=== PATIENT | male | born 1955 | race Caucasian/White ===

== ENCOUNTER 2016-10-31 04:41 | Emergency (ER) | payer BC ==
[~2016-10-31] VITALS: Ht 172.7 cm; Wt 96.0 kg
[~2016-10-31 04:41] MED LIST: MELO7.5
[2016-10-31 04:48] VITALS: BP 145/98; PULSE 63; RESP 14; TEMP 98.3; O2SAT 97
[2016-10-31] MEDS ORDERED: DEXAMETHASONE SOD PHOS 20 MG/5 ML VIAL IM ONE (05:15)
[2016-10-31] MEDS ORDERED: ORPHENADRINE INJ 60 MG/2 ML AMP IM ONE (05:15)
[2016-10-31] MEDS ORDERED: MEDR4PAK PO (05:20)
[2016-10-31] MEDS ORDERED: ROBA750T PO (05:20)
[2016-10-31] MEDS ORDERED: TRAM50TA PO (05:20)
--- NOTE | 2016-10-31 05:21 | PD ---
HPI Chief Complaint: Musculoskeletal Complaint Time Seen by Provider: 05:05 Travel History International Travel<30 days: No Contact w/Intl Traveler<30days: No Traveled to known affect area: No History of Present Illness HPI 61-year-old male presents to the emergency department for complaint of severe pain to the right proximal lower extremity extending from the right buttock to the medial thigh area just proximal to the knee. Patient states symptoms began after patient used a medicine ball to do repetitive leg lifts on Saturday and was able to ambulate with ease as well as go surfing. Patient noticed symptoms began to worsen on Saturday and then by this morning was such that he has marked pain with attempted ambulation. Patient did take ibuprofen twice with last dose at 11 PM 800 mg. Patient denies any numbness tingling or weakness of the right lower extremity. Patient denies any saddle anesthesia. Patient denies any bladder or bowel dysfunction. Patient does note some low back pain in the right SI joint distribution. No prior history of lumbar disc disease or HNP. Patient states that he does not have pain in the hip joint itself is able to lift his leg across his leg for abduction and adduction internally and externally rotate his leg at the hip and has normal knee and ankle range of motion. Patient has not had any paresthesias to the right lower extremity has not noticed any discoloration of the right lower extremity no erythema no increased warmth no pallor or coolness. Patient states pain is only with attempted ambulation. Patient has no pain with standing sitting lying are again hip flexion extension or internal/external rotation abduction or abduction. No prior history of low back injury or pelvic pain or hip pain. Patient has cold-induced asthma but denies any other chronic medical conditions or surgeries. Patient takes no medications on a routine basis. Patient has used his 's cane to assist with ambulation. PFSH Past Medical History Narrative Medical Cold-induced asthma, tonsillectomy, occasional alcohol use; nursing notes reviewed Tetanus Vaccination: < 5 Years Influenza Vaccination: No Past Surgical History Tonsillectomy: Yes Social History Alcohol Use: Yes (occ) Tobacco Use: No Substance Use: No Allergies-Medications (Allergen,Severity, Reaction): Coded Allergies: Penicillin (Verified Allergy, Unknown, 10/31/16) Reported Meds & Prescriptions Reported Meds & Active Scripts Active Tramadol (Tramadol HCl) 50 Mg Tab 50 Mg PO Q6H PRN Robaxin (Methocarbamol) 750 Mg Tab 750 Mg PO Q6HR Medrol Dosepak (Methylprednisolone) 4 Mg Dspk 4 Mg PO DIRECTED Per Pharmacist direction Review of Systems Except as stated in HPI: all other systems reviewed are Neg General / Constitutional: No: Fever, Chills HENT: No: Congestion Cardiovascular: No: Chest Pain or Discomfort Respiratory: No: Shortness of Breath Gastrointestinal: No: Nausea, Vomiting, Abdominal Pain Genitourinary: No: Dysuria, Hesitancy, Dribbling, Incontinence, Pelvic Pain, Flank Pain Musculoskeletal: Positive: Myalgias, Arthralgias, Pain (with ambulation), No: Limited ROM, Weakness, Cramping, Edema Skin: No Rash Neurologic: No: Weakness, Focal Abnormalities, Coordination Problem, Paresthesia, Incontinence, Sensory Disturbance Psychiatric: No: Anxiety Hematologic/Lymphatic: No: Lymph Node Enlargement Physical Exam Narrative GENERAL: Well-developed well-nourished male in no acute distress no respiratory distress SKIN: Warm and dry. HEAD: Normocephalic. EYES: No scleral icterus. No injection or drainage. NECK: Supple, trachea midline. No JVD or lymphadenopathy. CARDIOVASCULAR: Regular rate and rhythm without murmurs, gallops, or rubs. RESPIRATORY: Breath sounds equal bilaterally. No accessory muscle use. GASTROINTESTINAL: Abdomen soft, non-tender, nondistended. MUSCULOSKELETAL: No cyanosis, or edema. Patient is able to demonstrate bilateral hip internal/external rotation and flexion extension and abduction and abduction as well as normal bilateral knee flexion extension and ankle dorsi flexion plantar flexion internal/external rotation eversion and inversion with bilateral dorsalis pedis pulses 2+ to palpation no pallor no coolness and no edema. DTRs 2+ and equal bilaterally. Sensory exam intact. BACK: Nontender except for mild tenderness to palpation of the right SI joint without obvious deformity. There is no tenderness to direct palpation along the thoracic or lumbar spine or over the left SI joint. Negative straight leg raising bilaterally. No CVA tenderness. Data Data Last Documented VS Vital Signs Date Time Temp Pulse Resp B/P Pulse Ox O2 Delivery O2 Flow Rate FiO2 10/31/16 06:12 99 10/31/16 04:48 98.3 63 14 145/98 Orders Dexamethasone Inj (Decadron Inj) (10/31/16 05:15) Orphenadrine Inj (Norflex Inj) (10/31/16 05:15) Spine, Lumbar - Ltd (Ap & Lat) (10/31/16 ) Pelvis, Ap Only (Routine) (10/31/16 ) Crutches (10/31/16 05:33) MDM Medical Decision Making Medical Screen Exam Complete: Yes Emergency Medical Condition: Yes Medical Record Reviewed: Yes Interpretation(s) Pelvis xr: nabi, chronic changes Lumbar spine xr: Disc space narrowing at L3-4, L4-5, and L5-S1 acute bony injury is identified Differential Diagnosis Sciatica, acute sacroiliitis, HNP, lumbar radiculopathy, piriformis syndrome, fracture, bursitis, myositis, musculoskeletal pain Narrative Course Patient administered Decadron 10 mg IM along with Norflex 60 mg IM: Limited imaging of the lumbar spine and right hip performed. Crutches ordered for the patient to keep him nonweightbearing on the right hip Diagnosis Primary Impression: Right lumbar radiculopathy Additional Impressions: Osteoarthritis Qualified Code: M16.0 - Osteoarthritis of both hips, unspecified osteoarthritis type Lumbar disc disease Referrals: Primary Care Physician 2 days Patient Instructions: General Instructions Departure Forms: Tests/Procedures, Work Release Special Instructions: no work x 2 days Med/Other Pt SpecificInfo: Prescription(s) given Scripts Tramadol 50 Mg Tab50 Mg PO Q6H PRN (PAIN) #7 TAB Ref 0 Prov:Milena Brennan MD 10/31/16 Methocarbamol (Robaxin)750 Mg [id number] Mg PO Q6HR #12 TAB Ref 0 Prov:Milena Brennan MD 10/31/16 Methylprednisolone Dosepak (Medrol Dosepak)4 Mg Dspk4 Mg PO DIRECTED #1 DSPK Ref 0 Per Pharmacist direction Prov:Milena Brennan MD 10/31/16 Disposition: DISCHARGE HOME Condition: Stable Milena Brennan MD Oct 31, 2016 05:20
--- NOTE | 2016-10-31 05:54 | RADHPO ---
EXAM DATE/TIME: 10/31/2016 05:36 [facility] COMPARISON: No previous studies available for comparison. INDICATIONS : Pelvic pain post excercise related injury. MEDICAL HISTORY : None. SURGICAL HISTORY : None. ENCOUNTER: Initial ACUITY: 1 day PAIN SCORE: 8/10 LOCATION: Bilateral pelvis FINDINGS: A single frontal view of the pelvis demonstrates no evidence of fracture. The bony pelvic ring is in tact. Bony mineralization is normal. The soft tissues are intact. Mild osteoarthritis seen of both hips. CONCLUSION: Intact pelvis. Mild bilateral hip osteoarthritis. Kade Fenton MD on October 31, 2016 at 5:53 Board Certified Radiologist. This report was verified electronically.
--- NOTE | 2016-10-31 05:57 | RADHPO ---
EXAM DATE/TIME: 10/31/2016 05:39 [facility] COMPARISON: No previous studies available for comparison. INDICATIONS : Lower back pain post excercise related injury. MEDICAL HISTORY : None. SURGICAL HISTORY : None. ENCOUNTER: Initial ACUITY: 1 day PAIN SCORE: 8/10 LOCATION: Bilateral lower back FINDINGS: There are chronic bilateral pars defects of L5. Approximately 6 mm of L5/S1 spondylolisthesis present , presumably chronic. No acute fracture or acute-appearing malalignment seen. There is moderate disc space narrowing at L3/L4, L4/L5 and L5/S1. Bilateral facet osteoarthritis seen at these levels as well, moderate at L3/L4 and severe at the other 2 levels. CONCLUSION: Mid and lower lumbar degenerative changes as above. Chronic L5 pars defects with grade 1 L5/S1 spondy lolisthesis. No acute fracture or acute-appearing malalignment. Kade Fenton MD on October 31, 2016 at 5:54 Board Certified Radiologist. This report was verified electronically.
== END 2016-10-31 06:11 | disposition home or self-care (01) ==
LOC: PHED 04:41
DX: M54.16 Radiculopathy, lumbar region (principal); M16.0 Bilateral primary osteoarthritis of hip; J45.909 Unspecified asthma, uncomplicated; X50.3XXA Overexertion from repetitive movements, initial encounter; X50.1XXA Overexertion from prolonged static or awkward postures, initial encounter; Y93.B9 Activity, other involving muscle strengthening exercises; Y92.9 Unspecified place or not applicable; Y99.8 Other external cause status
CPT/HCPCS: 72100; 72170; 96372; 99284; E0113; J1100; J2360